=== PATIENT | female | born 1970 ===

== ENCOUNTER → 2020-12-29 | Emergency (ER) | payer OTHER ==
[~2020-12-29] VITALS: Ht 157.5 cm; Wt 72.6 kg
[~2020-12-29] MED LIST: KETO10TA2 PO; SYNTHROID200 MCG PO
== END | disposition home or self-care (01) ==
LOC: ER 13:56
DX: S90.31XA Contusion of right foot, initial encounter (principal); W18.39XA Other fall on same level, initial encounter; Y93.89 Activity, other specified; Y92.098 Other place in other non-institutional residence as the place of occurrence of the external cause; Y99.8 Other external cause status